=== PATIENT | male | born 1950 | race Hispanic/Latino ===

== ENCOUNTER 2024-02-18 07:43 | Outpatient (CLI) | payer MEDICARE, BC ==
[2024-02-18 09:52] LABS: Hematocrit 42.9 % (38.8-50.0); Hemoglobin 14.8 g/dL (13.5-17.5)
[2024-02-18 10:05] LABS: Anion Gap 14 mmol/L (10-20); BUN (Urea Nitrogen) 20 mg/dL (8.4-25.7); Calc. Creatinine Clearance 0 mL/min (70-130); Calcium 9.6 mg/dL (7.8-10.44); Carbon Dioxide 26 mmol/L (23-31); Chloride 104 mmol/L (98-107); Estimated GFR 81; Glucose 91 mg/dL (83-110); Potassium 4.7 mmol/L (3.5-5.1); Sodium 139 mmol/L (136-145)
== END 2024-02-18 07:44 | disposition home or self-care (01) ==
LOC: CSHLAB 07:43
PROVIDERS: ATTEND Otolaryngology Otolaryngic Allergy
DX: Z01.818 Encounter for other preprocedural examination (principal); K11.8 Other diseases of salivary glands
CPT/HCPCS: 80048; 85014; 85018; 93005; 93010